=== PATIENT | male | born 1990 | race African-American/Black ===

== ENCOUNTER 2021-10-09 15:05 | Emergency (ER) | payer OTHER ==
[2021-10-09 15:18] VITALS: BP 137/82; PULSE 88; TEMP 98.7; BMI 28.1
[2021-10-09] MEDS ORDERED: METHOCARBAMOL 500 MG TABLET PO ONE (15:33)
[2021-10-09] MEDS ORDERED: KETOROLAC TROMETHAMINE 30 MG/1 ML VIAL IM ONE (15:33)
[2021-10-09] MEDS ORDERED: ONDANSETRON 4 MG TABLET PO ONE (15:34)
[2021-10-09] MEDS ORDERED: METHOCARBAMOL 500 MG TABLET ONE (15:37)
[2021-10-09] MEDS ORDERED: ONDANSETRON *ODT* 4 MG TABLET ONE (15:38)
[2021-10-09] MEDS ORDERED: KETOROLAC TROMETHAMINE 30 MG/1 ML VIAL ONE (15:38)
== END 2021-10-09 16:45 | disposition home or self-care (01) ==
LOC: FER 15:05
PROC: 3E023GC Introduction of Other Therapeutic Substance into Muscle, Percutaneous Approach (ICD-10-PCS; principal; 2021-10-09)
DX: S16.1XXA Strain of muscle, fascia and tendon at neck level, initial encounter (principal); M54.41 Lumbago with sciatica, right side; V49.40XA Driver injured in collision with unspecified motor vehicles in traffic accident, initial encounter
CPT/HCPCS: 70450-TC; 72125-TC; 99284-25